=== PATIENT | male | born 1970 | race Two or more races ===

== ENCOUNTER 2019-04-20 14:24 | Emergency (ER) | payer SELFPAY ==
[~2019-04-20] VITALS: Ht 177.8 cm; Wt 83.9 kg
[2019-04-20] MEDS: IV NORMAL SALINE 1000ML BAG 1,000 ML IV ONE (14:45)
[2019-04-20 15:04] LABS: BASO # 0.1 x10^3/uL (0.0-0.2); BASO % 1 % (0-3); EOS # 0.1 x10^3/uL (0.0-0.7); EOS % 1 % (0-3); HEMATOCRIT 44.7 % (39.0-53.0); HEMOGLOBIN 14.9 g/dL (13.0-17.5); LYMPH # 1.7 x10^3/uL (1.0-4.8); LYMPH % 23 % (24-48); MEAN CORPUSCULAR HEMOGLOBIN 31 pg (25-35); MEAN CORPUSCULAR HGB CONC 33 g/dL (31-37); MEAN CORPUSCULAR VOLUME 94 fL (79-100); MONO # 0.6 x10^3/uL (0.0-1.1); MONO % 8 % (0-9); NEUT # 4.9 x10^3/uL (1.8-7.7); NEUT % 67 % (31-73); PLATELET COUNT 259 x10^3/uL (140-400); RED BLOOD COUNT 4.76 x10^6/uL (4.30-5.70); RED CELL DISTRIBUTION WIDTH 13.9 % (11.5-14.5); WHITE BLOOD COUNT 7.4 x10^3/uL (4.0-11.0)
[2019-04-20 15:11] LABS: PROTHROMBIN TIME PATIENT 12.5 SEC (11.7-14.0)
[2019-04-20 15:13] LABS: CALCIUM 8.4 mg/dL (8.5-10.1); CREATININE 1.1 mg/dL (0.7-1.3); GFR 72.1; POTASSIUM 3.9 mmol/L (3.5-5.1)
[2019-04-20 15:19] LABS: ALBUMIN 3.3 g/dL (3.4-5.0); ALBUMIN/GLOBULIN RATIO 1.1 (1.0-1.7); MAGNESIUM 2.4 mg/dL (1.8-2.4); TOTAL BILIRUBIN 0.4 mg/dL (0.2-1.0); TOTAL PROTEIN 6.3 g/dL (6.4-8.2)
[2019-04-20 15:27] LABS: CREATINE KINASE 67 U/L (39-308)
--- NOTE | 2019-04-20 15:32 | RAD ---
Examination: PORTABLE CHEST 1V History: Seizure Comparison/Correlation: None Findings: Portable upright frontal view chest was obtained. Heart size and pulmonary vessels are normal. No infiltrate or pleural effusion. No pneumothorax. Bony structures unremarkable. No infiltrate. Impression: No active disease. Electronically signed by: Corey Vegas MD (04/20/2019 3:29 PM) [facility]
--- NOTE | 2019-04-20 15:43 | RAD ---
Examination: CT HEAD WO CONTRAST History: Seizure Comparison/Correlation: None Findings: Axial images were obtained without contrast. Artifact may limit evaluation of the anterior frontal region. Ventricles are normal size. No intracranial hemorrhage, midline shift, or mass effect. Visualized orbits are unremarkable. Bony structures are unremarkable. Impression: No suspicious finding. PQRS Compliance Statement: One or more of the following individualized dose reduction techniques were utilized for this examination: 1. Automated exposure control 2. Adjustment of the mA and/or kV according to patient size 3. Use of iterative reconstruction technique Electronically signed by: Corey Vegas MD (04/20/2019 3:41 PM) [facility]
[2019-04-20 15:51] VITALS: BP 104/56
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
[2019-04-20 16:02] LABS: BILIRUBIN,URINE SMALL (NEG); CLARITY,URINE CLEAR; COLOR,URINE AMBER; NITRITE,URINE NEGATIVE (NEG); PROTEIN,URINE 100 mg/dL (NEG-TRACE)
--- NOTE | 2019-04-20 16:05 | EKG ---
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
[2019-04-20 16:08] LABS: RBC,URINE 0 /HPF (0-2)
[2019-04-20 16:09] LABS: BACTERIA,URINE 0 /HPF (0-FEW); BARBITURATES NEG (NEG); BENZODIAZEPINES NEG (NEG); CANNABINOIDS POS (NEG); COCAINE NEG (NEG); HYALINE CASTS, URINE FEW /HPF; METHADONE NEG (NEG); OPIATES NEG (NEG); PHENCYCLIDINE NEG (NEG)
[2019-04-20 16:15] LABS: AMPHETAMINE/METHAMPHETAMINE POS (NEG)
[2019-04-20] MEDS: metroNIDAZOLE 500 MG TABLET PO ONE (17:15)
[2019-04-20] MEDS: cefTRIAXone IV Push 1 GM VIAL. IVP ONE (17:15)
[2019-04-20] MEDS: AZITHROMYCIN 250 MG TABLET. PO ONE (17:15)
== END 2019-04-20 18:23 | disposition home or self-care (01) ==
LOC: ER 14:24
DX: F12.20 Cannabis dependence, uncomplicated (principal); F15.10 Other stimulant abuse, uncomplicated; R56.9 Unspecified convulsions; R11.10 Vomiting, unspecified
CPT/HCPCS: 36415; 70450; 71045; 80053; 80307; 81001; 82553; 83605; 83735; 83880; 84484; 85025; 85610; 93005; 96361; 96374; 99285; G0480; J0696; J7030; Q0144